=== PATIENT | female | born 1945 | race Caucasian/White ===

== ENCOUNTER 2021-06-13 23:36 | Observation (INO) ==
[2021-06-14] MEDS ORDERED: Naloxone 0.4 MG/ML INJ IVP PRN (01:31)
[2021-06-14] MEDS ORDERED: NON-FORMULARY MEDICATION 1 EACH EACH (Ipratropium/Albuterol Sulfate 120 PUFF Inhaler) PO PRN (01:38)
[2021-06-14] MEDS ORDERED: Budesonide/Formoterol 160/4.5 1 PUFF INH IH SCH (09:00)
[2021-06-14] MEDS: Ipratropium/Albuterol Neb 3 ML IH PRN ×2 (09:05→22:34)
[2021-06-14] MEDS: Bismuth Subsalicylate 120 ML ORAL SUSPENSION PO SCH (09:18)
[2021-06-14] MEDS: Multivit/Ca/Min/Fe/FA 1 TAB TABLET PO SCH (09:19)
[2021-06-14] MEDS: Cholecalciferol (D-3) 1,000 UNIT (25MCG) TABLET PO SCH (09:19)
[2021-06-14] MEDS ORDERED: *HR* Dextrose 50 % in Water (Syg) 50 ML SYRINGE IVP PRN (10:49)
[2021-06-14] MEDS ORDERED: Dextrose Gel 15 GM/37.5 ML TUBE PO PRN ×2 (10:49)
[2021-06-14] MEDS ORDERED: D5% in Water 1,000 ML IVC PRN (10:49)
[2021-06-14] MEDS: Insulin LISPRO 300 UNITS/3 ML VIAL SUBQ SCH ×3 (11:46→21:00)
[2021-06-14] MEDS ORDERED: levoFLOXacin 750 MG TABLET PO SCH (19:00)
[2021-06-14] MEDS: Budesonide/Formoterol 80/4.5 1 PUFF INH IH SCH (22:34)
[2021-06-15] MEDS: *HR* Enoxaparin 40 MG/0.4 ML SYRINGE SQ SCH (05:45)
[2021-06-15] MEDS: Insulin LISPRO 300 UNITS/3 ML VIAL SUBQ SCH ×4 (08:44→20:31)
[2021-06-15] MEDS: Cholecalciferol (D-3) 1,000 UNIT (25MCG) TABLET PO SCH (09:17)
[2021-06-15] MEDS: Multivit/Ca/Min/Fe/FA 1 TAB TABLET PO SCH (09:17)
[2021-06-15] MEDS: Bismuth Subsalicylate 120 ML ORAL SUSPENSION PO SCH (09:18)
[2021-06-15] MEDS: Ipratropium/Albuterol Neb 3 ML IH PRN (10:08)
[2021-06-15] MEDS: Budesonide/Formoterol 80/4.5 1 PUFF INH IH SCH ×2 (10:08→21:49)
[2021-06-16] MEDS: Ondansetron ODT 4 MG TAB.RAPDIS SL PRN (05:12)
[2021-06-16] MEDS: *HR* Enoxaparin 40 MG/0.4 ML SYRINGE SQ SCH (06:00)
[2021-06-16] MEDS: Insulin LISPRO 300 UNITS/3 ML VIAL SUBQ SCH ×4 (07:15→21:19)
[2021-06-16] MEDS: Cholecalciferol (D-3) 1,000 UNIT (25MCG) TABLET PO SCH (07:29)
[2021-06-16] MEDS: Multivit/Ca/Min/Fe/FA 1 TAB TABLET PO SCH (07:29)
[2021-06-16] MEDS: Bismuth Subsalicylate 120 ML ORAL SUSPENSION PO SCH (07:29)
[2021-06-16] MEDS: Budesonide/Formoterol 80/4.5 1 PUFF INH IH SCH ×2 (10:13→21:34)
[2021-06-16] MEDS: Ibuprofen 600 MG TABLET PO PRN (16:59)
[2021-06-16] MEDS: Famotidine 20 MG TABLET PO SCH (21:25)
[2021-06-17] MEDS: *HR* Enoxaparin 40 MG/0.4 ML SYRINGE SQ SCH (05:29)
[2021-06-17] MEDS: Insulin LISPRO 300 UNITS/3 ML VIAL SUBQ SCH ×3 (07:19→16:47)
[2021-06-17 07:48] LABS: Hematocrit 35.5 % (35.3-44.9); Mean Corpuscular Hemoglobin 28.9 pg (28.0-33.3); Mean Corpuscular Volume 93.4 fL (83.0-100.0); Mean Platelet Volume 9.4 fL (9.4-12.4); Platelet Count 125 K/mcL (140-400); Red Cell Distribution Width 15.9 % (11.5-14.5); White Blood Count 4.7 K/mcL (4.3-11.1)
[2021-06-17 08:03] LABS: BUN/Creatinine Ratio 21 (6-26); Blood Urea Nitrogen 12 mg/dL (8-23); Calcium 8.6 mg/dL (8.6-10.3); Carbon Dioxide 34 mEq/L (23-29); Chloride 102 mEq/L (98-107); Glucose 89 mg/dL (70-105); Osmolality,Calculated 285 (280-300); Potassium 4.4 mEq/L (3.5-5.1); Sodium 138 mEq/L (136-145); eGFR For African Americans > 60 (> 60); eGFR For Non-African Americans > 60 (> 60)
[2021-06-17] MEDS: Multivit/Ca/Min/Fe/FA 1 TAB TABLET PO SCH (08:08)
[2021-06-17] MEDS: Famotidine 20 MG TABLET PO SCH ×2 (08:08→20:50)
[2021-06-17] MEDS: Cholecalciferol (D-3) 1,000 UNIT (25MCG) TABLET PO SCH (08:08)
[2021-06-17] MEDS: Bismuth Subsalicylate 120 ML ORAL SUSPENSION PO SCH (08:10)
[2021-06-17] MEDS: Ibuprofen 600 MG TABLET PO PRN (08:13)
[2021-06-17] MEDS: Budesonide/Formoterol 80/4.5 1 PUFF INH IH SCH (10:56)
[2021-06-17] MEDS: Ondansetron ODT 4 MG TAB.RAPDIS SL PRN (17:54)
[2021-06-17] MEDS: Bismuth Subsalicylate 120 ML ORAL SUSPENSION PO PRN (19:33)
[2021-06-18] MEDS: Budesonide/Formoterol 80/4.5 1 PUFF INH IH SCH ×2 (02:18→09:15)
[2021-06-18] MEDS: Insulin LISPRO 300 UNITS/3 ML VIAL SUBQ SCH ×3 (05:15→11:35)
[2021-06-18] MEDS: *HR* Enoxaparin 40 MG/0.4 ML SYRINGE SQ SCH (05:41)
[2021-06-18] MEDS: Famotidine 20 MG TABLET PO SCH (09:01)
[2021-06-18] MEDS: Multivit/Ca/Min/Fe/FA 1 TAB TABLET PO SCH (09:01)
[2021-06-18] MEDS: Cholecalciferol (D-3) 1,000 UNIT (25MCG) TABLET PO SCH (09:01)
[2021-06-18] MEDS: Bismuth Subsalicylate 120 ML ORAL SUSPENSION PO PRN (09:02)
[2021-06-18] MEDS: Ipratropium/Albuterol Neb 3 ML IH PRN (09:15)
[2021-06-18 09:17] VITALS: RESP 18
[2021-06-18 11:12] VITALS: BP 104/61; PULSE 61; TEMP 97.7; O2SAT 98
== END 2021-06-18 14:05 | disposition home health service (06) ==
LOC: INPPIK
PROVIDERS: ADMIT Internal Medicine; ATTEND Internal Medicine